=== PATIENT | female | born 1965 | race African-American/Black ===

== ENCOUNTER 2016-05-21 12:43 | Emergency (ER) | payer BC ==
[~2016-05-21] VITALS: Ht 162.6 cm; Wt 96.2 kg
[~2016-05-21 12:43] MED LIST: CARNITINE; CHOL10003 PO; DICL75TA PO; FERR325T31 PO; HYDR-2679 PO; LINO1LIQ MC; LOSA100T6 PO; MELO-156 PO; MULT-276 PO; PENI500T PO; RANI150C PO
--- NOTE | 2016-05-21 13:13 | ED.ADGEN ---
Adult General Chief Complaint Chief Complaint: HYPERTENSION HPI HPI Patient is a 51 year old woman presents emergency department with concerns about high blood pressure. She states she has a history of high blood pressure and has been taking her losartan as prescribed. However, last night she states that she felt a little "off" and again this morning had similar feeling. She describes a "ache" in her chest. She denies any other recent illness. She denies any dyspnea, diaphoresis, nausea, vomiting. She denies any cough. Negative stress test 2 years ago. Review of Systems Review of Systems Constitutional: Denies fever or chills. [] Eyes: Denies change in visual acuity. [] HENT: Denies nasal congestion or sore throat. [] Respiratory: Denies cough or shortness of breath. [] Cardiovascular: Denies chest pain or edema. [] GI: Denies abdominal pain, nausea, vomiting, bloody stools or diarrhea. [] : Denies dysuria. [] Musculoskeletal: Denies back pain or joint pain. [] Integument: Denies rash. [] Neurologic: Denies headache, focal weakness or sensory changes. [] Endocrine: Denies polyuria or polydipsia. [] Lymphatic: Denies swollen glands. [] Psychiatric: Denies depression or anxiety. [] Allergies Allergies Allergies Coded Allergies Type Severity Reaction Last Updated Verified adhesive Allergy Intermediate BLISTERS 08/05/13 Yes Physical Exam Physical Exam Constitutional: Well developed, well nourished, no acute distress, non-toxic appearance. [] HENT: Normocephalic, atraumatic, bilateral external ears normal, oropharynx moist, no oral exudates, nose normal. [] Eyes: PERRLA, EOMI, conjunctiva normal, no discharge. [] Neck: Normal range of motion, no tenderness, supple, no stridor. [] Cardiovascular:Heart rate regular rhythm, no murmur [] Lungs & Thorax: Bilateral breath sounds clear to auscultation [] Abdomen: Bowel sounds normal, soft, no tenderness, no masses, no pulsatile masses. [] Skin: Warm, dry, no erythema, no rash. [] Back: No tenderness, no CVA tenderness. [] Extremities: No tenderness, no cyanosis, no clubbing, ROM intact, no edema. [] Neurologic: Alert and oriented X 3, normal motor function, normal sensory function, no focal deficits noted. [] Psychologic: Affect normal, judgement normal, mood normal. [] Current Patient Data Vital Signs Vital Signs Date Time Temp Pulse Resp B/P Pulse Ox O2 Delivery O2 Flow Rate FiO2 05/21/16 14:03 52 16 145/82 96 Room Air 05/21/16 13:03 98 98.0 Lab Values Laboratory Tests Test 05/21/16 13:10 White Blood Count 5.3x10^3/uL (4.0-11.0) Red Blood Count 4.22x10^6/uL (3.50-5.40) Hemoglobin 12.2g/dL (12.0-15.5) Hematocrit 37.1% (36.0-47.0) Mean Corpuscular Volume 88fL (79-100) Mean Corpuscular Hemoglobin 29pg (25-35) Mean Corpuscular Hemoglobin Concent 33g/dL (31-37) Red Cell Distribution Width 13.8% (11.5-14.5) Platelet Count 275x10^3/uL (140-400) Neutrophils (%) (Auto) 59% (31-73) Lymphocytes (%) (Auto) 30% (24-48) Monocytes (%) (Auto) 8% (0-9) Eosinophils (%) (Auto) 3% (0-3) Basophils (%) (Auto) 1% (0-3) Neutrophils # (Auto) 3.1x10^3uL (1.8-7.7) Lymphocytes # (Auto) 1.6x10^3/uL (1.0-4.8) Monocytes # (Auto) 0.4x10^3/uL (0.0-1.1) Eosinophils # (Auto) 0.2x10^3/uL (0.0-0.7) Basophils # (Auto) 0.0x10^3/uL (0.0-0.2) Urine Collection Type Unknown Urine Color Yellow Urine Clarity Clear Urine pH 6.0 Urine Specific Hendricks 1.010 Urine Protein Negativemg/dL (NEG-TRACE) Urine Glucose (UA) Negativemg/dL (NEG) Urine Ketones (Stick) Negativemg/dL (NEG) Urine Blood Negative (NEG) Urine Nitrite Negative (NEG) Urine Bilirubin Negative (NEG) Urine Urobilinogen Dipstick 0.2mg/dL (0.2 mg/dL) Urine Leukocyte Esterase Negative (NEG) Urine RBC Occ/HPF (0-2) Urine WBC Occ/HPF (0-4) Urine Squamous Epithelial Cells Many/LPF Urine Bacteria Few/HPF (0-FEW) Sodium Level 142mmol/L (136-145) Potassium Level 3.9mmol/L (3.5-5.1) Chloride Level 105mmol/L (98-107) Carbon Dioxide Level 30mmol/L (21-32) Anion Gap 7 (6-14) Blood Urea Nitrogen 9mg/dL (7-20) Creatinine 1.0mg/dL (0.6-1.0) Estimated GFR (Cockcroft-Gault) 70.5 Glucose Level 87mg/dL (70-99) Calcium Level 9.5mg/dL (8.5-10.1) Total Bilirubin 0.6mg/dL (0.2-1.0) Direct Bilirubin 0.1mg/dL (0.0-0.2) Aspartate Amino Transferase (AST) 16U/L (15-37) Alanine Aminotransferase (ALT) 24U/L (14-59) Alkaline Phosphatase 77U/L (46-116) Troponin I Quantitative < 0.017ng/mL (0.000-0.055) NF-Mui-P-Type Natriuretic Peptide 75pg/mL (0-124) Total Protein 7.9g/dL (6.4-8.2) Albumin 4.0g/dL (3.4-5.0) Lipase 111U/L (73-393) Laboratory Tests 05/21/16 13:10 Laboratory Tests 05/21/16 13:10 EKG EKG EKG interpreted by de, normal sinus rhythm, 52 bpm, no ST segment elevation, normal axis, nonspecific T-wave changes in leads V1 and V4 [] Radiology/Procedures Radiology/Procedures Portable chest, 05/21/2016: History: Chest pain Comparison is made to a study from 07/28/2013. The heart size and pulmonary vascularity are normal. No pulmonary infiltrates are seen. There is no evidence of pleural fluid. IMPRESSION: No acute cardiopulmonary abnormality is detected. DICTATED and SIGNED BY: KEARA POWELL MD DATE: 05/21/16 3382 CC: DOC MACK MD; MYRIAM JACQUES MD ~ [] Course & Med Decision Making Course & Med Decision Making Pertinent Labs and Imaging studies reviewed. (See chart for details) Patient's workup is very reassuring. Her systolic blood pressures been between 140s to 160s while she has been here on the monitor. She has been essentially asymptomatic. I discussed all these findings with the patient she is in agreement that she will go home tonight and follow-up with her physician tomorrow. She will return emergency department sooner she develops any new or worsening symptoms. Hypertension [] Dragon Disclaimer Dragon Disclaimer This electronic medical record was generated, in whole or in part, using a voice recognition dictation system. DOC MACK MD May 21, 2016 13:13
[2016-05-21 13:21] LABS: BASO % 1 % (0-3); EOS % 3 % (0-3); HEMATOCRIT 37.1 % (36.0-47.0); HEMOGLOBIN 12.2 g/dL (12.0-15.5); LYMPH # 1.6 x10^3/uL (1.0-4.8); LYMPH % 30 % (24-48); MEAN CORPUSCULAR HEMOGLOBIN 29 pg (25-35); MEAN CORPUSCULAR HGB CONC 33 g/dL (31-37); MEAN CORPUSCULAR VOLUME 88 fL (79-100); MONO % 8 % (0-9); NEUT % 59 % (31-73); PLATELET COUNT 275 x10^3/uL (140-400); RED BLOOD COUNT 4.22 x10^6/uL (3.50-5.40); RED CELL DISTRIBUTION WIDTH 13.8 % (11.5-14.5); WHITE BLOOD COUNT 5.3 x10^3/uL (4.0-11.0)
[2016-05-21 13:22] LABS: BILIRUBIN,URINE NEGATIVE (NEG); GLUCOSE,URINE NEGATIVE (NEG); NITRITE,URINE NEGATIVE (NEG); PROTEIN,URINE NEGATIVE (NEG-TRACE); UROBILINOGEN,URINE 0.2 mg/dL (0.2 mg/dL)
[2016-05-21 13:27] LABS: BACTERIA,URINE FEW /HPF (0-FEW); RBC,URINE OCC /HPF (0-2); SQUAMOUS EPITHELIAL CELL,UR MANY /LPF; WBC,URINE OCC /HPF (0-4)
[2016-05-21 13:29] LABS: CALCIUM 9.5 mg/dL (8.5-10.1); GFR 70.5; POTASSIUM 3.9 mmol/L (3.5-5.1)
--- NOTE | 2016-05-21 13:31 | RAD ---
Portable chest, 05/21/2016: History: Chest pain Comparison is made to a study from 07/28/2013. The heart size and pulmonary vascularity are normal. No pulmonary infiltrates are seen. There is no evidence of pleural fluid. IMPRESSION: No acute cardiopulmonary abnormality is detected.
[2016-05-21 13:35] LABS: DIRECT BILIRUBIN 0.1 mg/dL (0.0-0.2); TOTAL BILIRUBIN 0.6 mg/dL (0.2-1.0); TOTAL PROTEIN 7.9 g/dL (6.4-8.2)
[2016-05-21 14:03] VITALS: BP 145/82
--- NOTE | 2016-05-21 14:21 | EKG ---
[facility] [address] [place] [address] Test Date: 2016-05-21 Test Time: 13:03:37 Pat Name: CANDACE VASQUEZ Department: Room: Gender: F Outreach Manager: : 1965 Requested By: DOC MACK Order Number: [id number] Reading MD: Gael Arias Measurements Intervals [place] Rate: 52 P: 24 WV: 198 QRS: 8 QRSD: 84 T: 13 QT: 446 QTc: 417 Interpretive Statements SINUS RHYTHM NORMAL ECG RI6.01 Unconfirmed report Compared to ECG 07/28/2013 12:24:39 T-wave abnormality no longer present Electronically Signed On 05-29-2016 10:21:17 [employer] SCI[employer] by Gael Arias
== END 2016-05-21 14:35 | disposition home or self-care (01) ==
LOC: ER 12:43
DX: I10 Essential (primary) hypertension (principal); Z91.048 Other nonmedicinal substance allergy status
CPT/HCPCS: 36415; 71010; 80048; 80076; 81001; 83690; 83880; 84484; 85027; 93005; 99285-25